=== PATIENT | male | born 1995 | race Caucasian/White ===

== ENCOUNTER 2020-11-25 20:52 | Emergency (ER) | payer SELFPAY ==
[~2020-11-25] VITALS: Ht 177.8 cm; Wt 68.0 kg
--- NOTE | 2020-11-25 21:00 | NUR ---
TARIK FROM [facility]. PER RA, PT WAS FOUND LAYING FACE DOWN IN BED. PT TESTED POSITIVE FOR BENZO. REC'D NASAL NARCAN, PT STILL LETHARGIC ON ARRIVAL, OPENS EYES TO PAINFUL STIMULI. VITAL SIGNS STABLE. RESPRIATIONS EVEN AND UNLABORED. PLACED IN GOWN AND ON MONITOR, SITTER AT BEDSIDE. WILL CONTINUE TO MONITOR
--- NOTE | 2020-11-25 21:00 | NUR ---
[facility] [phone]. GABINO (STAFF) [phone]
[2020-11-25] MEDS ORDERED: LIDOCAINE 2% JEL UROJET 10 ML MM ONE (21:28)
--- NOTE | 2020-11-25 21:34 | NUR ---
SUPPORT TECHNICIAN AT BEDSIDE FOR BLOOD DRAW
--- NOTE | 2020-11-25 21:36 | NUR ---
URINE COLLECTED AND SENT TO LAB
[2020-11-25 21:37] LABS: BASOPHILS # (AUTO) 0.1 /CMM (0.0-0.2); BASOPHILS % (AUTO) 0.7 % (0.0-2.0); EOSINOPHILS % (AUTO) 1.2 % (0.0-6.0); HEMATOCRIT 46 % (39-51); LYMPHOCYTES # (AUTO) 3.7 /CMM (0.8-4.8); LYMPHOCYTES % (AUTO) 38.5 % (20.0-44.0); MEAN CORPUSCULAR HGB CONC 35 g/dl (31.0-36.0); MEAN CORPUSCULAR VOLUME 85 fL (80-96); MONOCYTES # (AUTO) 0.5 /CMM (0.1-1.30); MONOCYTES % (AUTO) 5.2 % (2.0-12.0); NEUTROPHILS # (AUTO) 5.2 /CMM (1.8-8.9); NEUTROPHILS % (AUTO) 54.4 % (43.0-81.0); PLATELET COUNT (AUTO) 207 /CMM (150-450); RED BLOOD CELL COUNT(AUTO) 5.43 MIL/uL (4.5-6.0); WHITE BLOOD COUNT (AUTO) 9.6 K/uL (4.3-11.0)
[2020-11-25 21:45] LABS: BILIRUBIN,URINE Negative (NEGATIVE); COLOR,URINE YELLOW (YELLOW); LEUKOCYTE ESTERASE ,URINE Negative (NEGATIVE); NITRITE, URINE Negative (NEGATIVE); PROTEIN,URINE Negative (NEGATIVE); UGLUCOSE Negative (NEGATIVE); UROBILINOGEN,URINE 0.2 EU/dL (0.2)
[2020-11-25 21:46] LABS: CALCIUM, SERUM 8.9 mg/dL (8.5-10.1); CARBON DIOXIDE 25 mmol/L (21-32); CHLORIDE 103 mmol/L (98-107); CREATININE 0.9 mg/dL (0.6-1.3); GLUCOSE 94 mg/dL (74-106); POTASSIUM 3.9 mmol/L (3.5-5.1); SODIUM SERUM 138 mmol/L (136-145); UREA NITROGEN, BLOOD 17 mg/dL (7-18)
[2020-11-25 21:59] LABS: ALANINE AMINOTRANSFERASE 31 U/L (12-78); ALCOHOL, BLOOD 25 mg/dL (0-0); ALKALINE PHOSPHATASE 68 U/L (46-116); ASPARTATE AMINOTRANSFERASE 23 U/L (15-37); BILIRUBIN,DIRECT 0.1 mg/dL (0.0-0.2); BILIRUBIN,TOTAL 0.3 mg/dL (0.2-1.0); TOTAL PROTEIN, SERUM 7.4 g/dL (6.4-8.2)
[2020-11-25 22:02] LABS: ACETAMINOPHEN < 0 ug/ml (10-30)
--- NOTE | 2020-11-26 03:06 | NUR ---
Patient is awake and alert to self, day, and place. Pt requesting to be discharged back to sober living. Pt states that he has a ride coming to pick him up. Pt ok to be discharged per Dr Quan. Patient discharged to home in stable condition. Written and verbal after care instructions given. Patient verbalizes understanding of instruction. Pt ambulatory with a steady gait
[2020-11-26 03:07] VITALS: BP 124/65
== END 2020-11-26 03:08 | disposition home or self-care (01) ==
LOC: ER 20:56
DX: F19.10 Other psychoactive substance abuse, uncomplicated (principal); R41.82 Altered mental status, unspecified
CPT/HCPCS: 36415; 70450; 80048; 80076; 80143; 80307; 80320; 81003; 85025; 99284; J3490; G0480